=== PATIENT | female | born 1990 | race African-American/Black ===

== ENCOUNTER 2019-06-30 12:11 | Emergency (ER) | payer OTHER, MEDICAID ==
[~2019-06-30] VITALS: Ht 160 cm; Wt 59.0 kg
[2019-06-30 12:32] LABS: URINE BLOOD 3+ (Negative); URINE CLARITY CLEAR; URINE COLOR BROWN; URINE GLUCOSE-RANDOM NEGATIVE (Negative); URINE KETONES NEGATIVE (Negative); URINE PROTEIN 2+ (Negative); URINE SPECIFIC GRAVITY 1.025 (1.005-1.030)
[2019-06-30 12:33] LABS: URINE BILIRUBIN 1+ (Negative); URINE LEUKOCYTES-REFLEX 2+ (Negative); URINE NITRITE-REFLEX POSITIVE (Negative)
[2019-06-30 12:34] LABS: ICTOTEST (BILI CONFIRMATORY) Negative (Negative)
[2019-06-30 12:40] LABS: SQUAMOUS >10 Many /LPF (0-3)
[2019-06-30 12:41] LABS: CASTS None Seen /LPF (None Seen); CRYSTALS None Seen /LPF (None Seen); MUCUS 4-6 Moderate strn/LPF (None Seen); URINE RBC >20 Many /HPF (0-2); URINE WBC-REFLEX >25 Many /HPF (0-5); YEAST-REFLEX Present (None Seen)
[2019-06-30] MEDS ORDERED: BACTRIM DS TAB1 EACH PO (12:54)
[2019-06-30] MEDS ORDERED: DIFLUCAN150 MG PO (12:54)
[2019-06-30] MEDS ORDERED: PHENAZOPYRIDIN200 M2 PO (12:56)
[2019-06-30 13:04] VITALS: BP 139/92
== END 2019-06-30 13:14 | disposition home or self-care (01) ==
LOC: M.ERS 12:11
PROVIDERS: Physician Assistant
DX: N39.0 Urinary tract infection, site not specified (principal); B37.9 Candidiasis, unspecified; F17.200 Nicotine dependence, unspecified, uncomplicated